=== PATIENT | male | born 1960 | race American Indian/Alaskan Native ===

== ENCOUNTER 2021-01-17 | Emergency (ER) | payer MEDICAID ==
[2021-01-17 03:27] LABS: Basophils # (Auto) 0.1 K/mm3 (0.0-0.1); Basophils % (Auto) 0.6 % (0.0-1.8); Eosinophils # (Auto) 0.1 K/mm3 (0.0-0.4); Eosinophils % (Auto) 0.8 % (0.0-4.3); Hematocrit 45.9 % (35.5-45.6); Hemoglobin 14.9 gm/dl (11.8-15.2); Lymphocytes # (Auto) 2.4 K/mm3 (1.2-5.4); Lymphocytes % (Auto) 20.8 % (13.4-35.0); Mean Corpuscular HGB Conc 33 % (32-34); Mean Corpuscular Volume 82 fl (84-94); Monocytes # (Auto) 0.9 K/mm3 (0.0-0.8); Monocytes % (Auto) 7.3 % (0.0-7.3); Platelet Count 175 K/mm3 (140-440); Red Cell Distribution Width 15.9 % (13.2-15.2)
--- NOTE | 2021-01-17 03:32 | Emergency Department Report ---
<YING MORINPHILLY Kirby - Last Filed: 01/17/21 05:17> ED Psych HPI - General Chief Complaint: Psych Stated Complaint: Hallucinations Time Seen by Provider: 01/17/21 03:09 Source: patient, family Mode of arrival: Ambulatory Limitations: No Limitations - History of Present Illness Initial Comments: Patient is a 60-year-old male presents emergency room for worsening hallucinations and homicidal ideations and agitation. Patient brought in by the patient's sister for an evaluation. Patient sister at bedside. Patient sister states that the patient is having worsening hallucinations and agitation and homicidal ideation. Patient sister states it started 3 days ago. Patient states his symptoms are worsening. Patient sister states that he is stating he wants to kill everybody. Patient has missed 2 shots of his Invega. Patient sister states that she cannot control the patient when he is off his meds. Patient denies suicidal ideations. Patient states that he cannot control his homicidal thoughts. Patient denies recent travel. Patient denies recent international travel. Patient denies exposure to the novel coronavirus. Patient denies sick contacts. Patient denies fever and chills. Patient denies cough. Patient denies diarrhea. Patient denies coming in contact with anybody with symptoms of the novel coronavirus. MD Complaint: other -: Sudden Associated Psychiatric Symptoms: homicidal ideation, auditory hallucinations, visual hallucinations History of same: Yes Quality: constant Improves With: none Worsens With: none Context: not taking psychiatric Associated Symptoms: denies: confusion, headache, shortness of breath, nausea, vomiting, syncope, insomnia - Related Data Allergies Allergy/AdvReac Type Severity Reaction Status Date / Time No Known Allergies Allergy Unverified 01/17/21 03:01 ED Review of Systems Constitutional: denies: chills, fever Eyes: denies: eye pain, eye discharge, vision change ENT: denies: ear pain, throat pain Respiratory: denies: cough, shortness of breath, wheezing Cardiovascular: denies: chest pain, palpitations Endocrine: no symptoms reported Gastrointestinal: denies: abdominal pain, nausea, diarrhea Genitourinary: denies: urgency, dysuria Musculoskeletal: denies: back pain, joint swelling, arthralgia Skin: denies: rash, lesions Neurological: denies: headache, weakness, paresthesias Psychiatric: as per HPI, auditory hallucinations, visual hallucinations, homicidal thoughts. denies: anxiety, depression, suicidal thoughts Hematological/Lymphatic: denies: easy bleeding, easy bruising ED Past Medical Hx - Past Medical History Previous Medical History?: Yes Hx Psychiatric Treatment: Yes - Surgical History Past Surgical History?: No - Family History Family history: no significant - Social History Smoking Status: Never Smoker Substance Use Type: None ED Physical Exam - General Limitations: No Limitations General appearance: alert, in no apparent distress - Head Head exam: Present: atraumatic, normocephalic - Eye Eye exam: Present: normal appearance - ENT ENT exam: Present: mucous membranes moist - Neck Neck exam: Present: normal inspection - Respiratory Respiratory exam: Present: normal lung sounds bilaterally. Absent: respiratory distress - Cardiovascular Cardiovascular Exam: Present: regular rate, normal rhythm. Absent: systolic murmur, diastolic murmur, rubs, gallop - GI/Abdominal GI/Abdominal exam: Present: soft, normal bowel sounds - Rectal Rectal exam: Present: deferred - Extremities Exam Extremities exam: Present: normal inspection - Back Exam Back exam: Present: normal inspection - Neurological Exam Neurological exam: Present: alert, oriented X3 - Psychiatric Psychiatric exam: Present: flat affect, homicidal ideation - Skin Skin exam: Present: warm, dry, intact, normal color. Absent: rash ED Course - Reevaluation(s) Reevaluation #1: Patient is medically cleared. Patient remained in the ER as an ER hold. Erickson jensen's final disposition will come from our mental health and psychiatry team. 01/17/21 05:17 ED Medical Decision Making - Lab Data Result diagrams: 01/17/21 01:35 01/17/21 01:35 - Medical Decision Making Patient is a 60-year-old male who presents emergency room for homicidal ideations and hallucinations. Patient is currently off his medications. Patient brought in by sister because she cannot handle his behavior and constant yelling out he wants to kill people. Patient has missed 2 doses of his injectable psychiatry medication. Patient had labs done which were essentially unremarkable. Patient is medically cleared. Patient will remain in the ER as an ER hold until the patient is cleared by the psychiatry mental health team. Patient's final disposition will come from our psychiatry mental health team. - Differential Diagnosis Hallucination, homicidal ideations, ED Disposition Clinical Impression: Homicidal ideations, Hallucinations, Acute psychosis Disposition: DC-01 TO HOME OR SELFCARE Is pt being admited?: No Does the pt Need Aspirin: No Condition: Stable Additional Instructions: OUTPATIENT MENTAL HEALTH RESOURCES [facility], [facility] Marquis James MD: [address] [place] [address] [place] [address] [facility] [place] [facility]: [facility] [address] [place] [address] [place] [address] [phone] [facility]: [facility]: [address] [facility] [address] [facility] [place] [address] [facility] [id number] [facility]: Karlo Pardo MD: [address] [facility] [address] [facility] [id number] [facility]: [address] [place] [address] [phone] [place] CRISIS AND ACCESS LINE: Referrals: PRIMARY CARE, [Primary Care Provider] - 3-5 Days Time of Disposition: 05:20 <ANGY LR - Last Filed: 01/17/21 11:54> ED Review of Systems ROS: Stated complaint: Hallucinations Other details as noted in HPI ED Course Vital Signs 01/17/21 01/17/21 01/17/21 02:47 04:24 09:16 Temperature 98.0 F 98.3 F Pulse Rate 88 90 Respiratory 18 20 20 Rate Blood Pressure 162/95 169/94 [Left] O2 Sat by Pulse 97 98 97 Oximetry ED Medical Decision Making - Lab Data Result diagrams: 01/17/21 01:35 01/17/21 01:35 - Medical Decision Making Patient has been cleared for discharge by psychiatric team. Patient will receive Invega injection. His family member will take him home. I have arranged discharge disposition. Critical care attestation.: If time is entered above; I have spent that time in minutes in the direct care of this critically ill patient, excluding procedure time. ED Disposition Is pt being admited?: No Does the pt Need Aspirin: No
[2021-01-17 03:45] LABS: BUN/Creatinine Ratio 13; Blood Urea Nitrogen 13 mg/dL (9-20); Calcium 9.6 mg/dL (8.4-10.2); Hemolysis Index 0
[2021-01-17 04:22] LABS: Bilirubin,Urine NEG (Negative); Blood,Urine NEG (Negative); Color,Urine Yellow (Yellow); Mucus,Urine FEW /HPF; Protein,Urine <15 mg/dL mg/dL (Negative); Urobilinogen,Urine < 2.0 mg/dL (<2.0)
[2021-01-17 04:49] LABS: Amphetamine Screen,Urine PRESUMPTIVE NEGATIVE; Benzodiazepines Screen,Urine PRESUMPTIVE NEGATIVE; Cannabinoid Screen,Urine PRESUMPTIVE NEGATIVE; Cocaine Screen,Urine PRESUMPTIVE NEGATIVE; Methadone Screen,Urine PRESUMPTIVE NEGATIVE; Opiate Screen,Urine PRESUMPTIVE NEGATIVE
--- NOTE | 2021-01-17 11:22 | Consultation ---
History of Present Illness - Reason for Consult Consult date: 01/17/21 Reason for consult: MHE - History of Present Psychiatric Illness Per ER Note: Patient is a 60-year-old male presents emergency room for worsening hallucinations and homicidal ideations and agitation. Patient brought in by the patient's sister for an evaluation. Patient sister at bedside. Patient sister states that the patient is having worsening hallucinations and agitation and courtney icidal ideation. Patient sister states it started 3 days ago. Patient states his symptoms are worsening. Patient sister states that he is stating he wants to kill everybody. Patient has missed 2 shots of his Invega. Patient sister states that she cannot control the patient when he is off his meds. Patient denies suicidal ideations. Patient states that he cannot control his homicidal thoughts. Salvador Cazares is a 60y/o male patient who was brought in by his daughter. During my evaluation of the patient he is confused, but calm and cooperative. The patient's speech is slurred and his left arm appears weak. The states "yes" when I asked if he had a stroke. The patient states "my sister brought me" when asked why did he come to the hospital. He denies SI/HI. But when asked if he had any hallucinations he replied "I don't know." I spoke with the sister and she states the patient hasn't had his Invega this month. She says he starts talking crazy and out of his head when he misses his injection. The sister says the patient goes to the [facility] and they didn't have it in and told them to bring him to the hospital. I discussed with the sister giving the patient his injection here and then sending him back home and following up with the [facility]. She verbalizes agreement and understanding. PAST PSYCHIATRIC HISTORY Diagnoses: bipolar Suicide attempts or Self-harm behavior: Denies Prior psychiatric hospitalizations: Denies Substance Abuse history: Denies Previous psychiatric medications tried: Invega Outpatient treatment: not in a long time PAST MEDICAL HISTORY: None reported Family Psychiatric History: None reported or documented SOCIAL HISTORY Marital Status: Single Living Arrangements: with family Employment Status: Disabled Access to guns/weapons: Denies Education: History of Abuse: Denies Legal History: none reported REVIEW OF SYSTEMS Constitutional: Negative for weight loss ENT: Negative for stridor Respiratory: Negative for cough or hemoptysis All other systems reviewed and are negative MENTAL STATUS EXAMINATION General Appearance and Behavior: Age appropriate, good hygiene, wearing appropriate clothes, good eye contact, pleasant Cooperation: Participating/engaged Psychomotor Behavior: Psychomotor normal Mood: alright Affect and affective range: congruent with stated mood Thought Process: confused Thought Content: None Speech: Normal rate, volume and rhythm Suicidal Ideation: Denies Homicidal Ideation: Denies Delusions: None elicited Impulse Control: Impaired Insight and Judgment: Limited insight and judgment Memory: Limited Attention: Limited Orientation: Alert, oriented Assessment and Plan (1) Bipolar Disosrder Current Visit: Yes Status: Acute Treatment Plan Invega Sustenna 156mg IM X 1. Please give this injection prior to the patient discharging. Call sister once given. Risks, benefits and alternatives of medications discussed with the patient, questions answered and consent obtained from patient. PSYCHOTHERAPY: Supportive psychotherapy provided MEDICAL: Per primary team DELIRIUM PRECAUTIONS: Please re-orient patient frequently, keep lights on during the day, and minimize benzodiazepines and opiates as these medications could worsen patient's confusion. PORCELAIN TECHNICIAN: DISPOSITION: Do not recommend acute inpatient psychiatric hospitalization at this time. Case discussed with Dr. Wang who agrees with current disposition The patient to follow up with the [facility] FOLLOW-UP: Will sign off Thank you for the consult. Please contact with any questions and/or concerns. Medications and Allergies Allergies Allergy/AdvReac Type Severity Reaction Status Date / Time No Known Allergies Allergy Unverified 01/17/21 03:01 Mental Status Exam - Vital signs Last Vital Signs Temp 98.3 F 01/17/21 09:16 Pulse 90 01/17/21 09:16 Resp 20 01/17/21 09:16 BP 169/94 01/17/21 09:16 Pulse Ox 97 01/17/21 09:16 Results Result Diagrams: 01/17/21 01:35 01/17/21 01:35 Abnormal lab results 01/17/21 01/17/21 01/17/21 Range/Units 01:35 01:35 01:35 WBC 11.6 H (4.5-11.0) K/mm3 RBC 5.60 H (3.65-5.03) M/mm3 Hct 45.9 H (35.5-45.6) % MCV 82 L (84-94) fl MCH 27 L (28-32) pg RDW 15.9 H (13.2-15.2) % [place] # (Auto) 0.9 H (0.0-0.8) K/mm3 Seg Neutrophils % 70.5 H (40.0-70.0) % Seg Neutrophils # 8.2 H (1.8-7.7) K/mm3 Salicylates < 0.3 L (2.8-20.0) mg/dL Acetaminophen 5.0 L (10.0-30.0) ug/mL All other labs normal.
[2021-01-17] MEDS ORDERED: LORazepam 1 MG TAB PO ONE (15:03)
[2021-01-18 08:19] VITALS: BP 123/70
--- NOTE | 2021-01-18 09:25 | Progress Note ---
Subjective - Reason for Consult Consult date: 01/18/21 Reason for consult: Mental Health Exam - Chief Complaint Chief complaint: The patient was sen resting quietly; patient is calm. He reports doing well. The patient reposrts sleep and appetite as good. He denies any current suicidal/homicidal ideation and denies hallucinations. REVIEW OF SYSTEMS Constitutional: Negative for weight loss ENT: Negative for stridor Respiratory: Negative for cough or hemoptysis All other systems reviewed and are negative MENTAL STATUS EXAMINATION General Appearance and Behavior: Age appropriate, good hygiene, wearing appropriate clothes, good eye contact, pleasant Cooperation: Participating/engaged Psychomotor Behavior: Psychomotor normal Mood: " okay' Affect and affective range: congruent with stated mood Thought Process: self directed Thought Content: None Speech: Normal rate, volume and rhythm Suicidal Ideation: Denies Homicidal Ideation: Denies Delusions: None elicited Impulse Control: Impaired Insight and Judgment: Limited insight and judgment Memory: Limited Attention: Limited Orientation: Alert, oriented Assessment and Plan (1) Bipolar Disosrder Current Visit: Yes Status: Acute Treatment Plan Invega Sustenna 156mg IM X 1. Please give this injection prior to the patient discharging. Call sister once given. Risks, benefits and alternatives of medications discussed with the patient, questions answered and consent obtained from patient. PSYCHOTHERAPY: Supportive psychotherapy provided MEDICAL: Per primary team DELIRIUM PRECAUTIONS: Please re-orient patient frequently, keep lights on during the day, and minimize benzodiazepines and opiates as these medications could worsen patient's confusion. STERILE INSTRUMENT TECHNICIAN: DISPOSITION: Do not recommend acute inpatient psychiatric hospitalization at this time. Case discussed with Dr. Wang who agrees with current disposition The patient to follow up with the [facility] FOLLOW-UP: Will sign off Thank you for the consult. Please contact with any questions and/or concerns. Mental Status Exam - Vital signs Last Vital Signs Temp 97.8 F 01/18/21 08:00 Pulse 70 01/18/21 08:00 Resp 18 01/18/21 08:00 BP 123/70 01/18/21 08:00 Pulse Ox 100 01/18/21 08:00
[2021-01-18] MEDS ORDERED: PALIPERIDONE PALMITATE 156 MG/ML INJ IM SCH (12:30)
== END 2021-01-18 20:45 | disposition home or self-care (01) ==
LOC: EEVIPCON → ED
DX: F23 Brief psychotic disorder (principal); Z20.822 Contact with and (suspected) exposure to COVID-19; R45.850 Homicidal ideations
CPT/HCPCS: 36415; 80048; 80307; 81001; 85025; 99284; J2426; U0003; 80320; G0480

== ENCOUNTER → 2022-03-27 | Emergency (ER) | payer MEDICAID ==
[~2022-03-27] MED LIST: LORazepam 2 MG/ML VIAL IM PRN; cephALEXin 500 MG CAP PO ONE; hydrOXYzine PAMOATE 25 MG CAP PO PRN; risperiDONE 1 MG TAB PO SCH; traZODone 50 MG TAB PO SCH
[2022-03-27 23:54] LABS: Bilirubin,Urine NEG (Negative); Blood,Urine NEG (Negative); Color,Urine Straw (Yellow); Protein,Urine <15 mg/dL mg/dL (Negative)
[2022-03-27 23:58] LABS: Urobilinogen,Urine < 2 mg/dL (<2.0)
[2022-03-28] LABS: Amphetamine Screen,Urine PRESUMPTIVE NEGATIVE; Benzodiazepines Screen,Urine PRESUMPTIVE NEGATIVE; Cannabinoid Screen,Urine PRESUMPTIVE NEGATIVE; Cocaine Screen,Urine PRESUMPTIVE NEGATIVE; Methadone Screen,Urine PRESUMPTIVE NEGATIVE; Opiate Screen,Urine PRESUMPTIVE NEGATIVE
[2022-03-28 00:08] LABS: Basophils # (Auto) 0.1 K/mm3 (0.0-0.1); Basophils % (Auto) 1.4 % (0.0-1.8); Eosinophils # (Auto) 0.1 K/mm3 (0.0-0.4); Eosinophils % (Auto) 1.2 % (0.0-4.3); Hematocrit 40.1 % (35.5-45.6); Hemoglobin 13.5 gm/dl (11.8-15.2); Lymphocytes # (Auto) 2.6 K/mm3 (1.2-5.4); Lymphocytes % (Auto) 28.5 % (13.4-35.0); Mean Corpuscular HGB Conc 34 % (32-34); Mean Corpuscular Volume 78 fl (84-94); Monocytes # (Auto) 0.6 K/mm3 (0.0-0.8); Platelet Count 173 K/mm3 (140-440); Red Blood Count 5.14 M/mm3 (3.65-5.03); Red Cell Distribution Width 14.8 % (13.2-15.2)
[2022-03-28 00:23] LABS: BUN/Creatinine Ratio 15; Blood Urea Nitrogen 17 mg/dL (9-20); Calcium 10.2 mg/dL (8.4-10.2); Hemolysis Index 12
[2022-03-28 00:56] LABS: Bacteria,Urine 1+ /HPF (Negative)
--- NOTE | 2022-03-28 09:43 | Emergency Department Report ---
ED General Adult HPI - General Chief complaint: Psych Stated complaint: MENTAL HEALTH Time Seen by Provider: 03/28/22 09:32 Source: patient, family, RN notes reviewed, old records reviewed Mode of arrival: Ambulatory Limitations: No Limitations - History of Present Illness Initial comments: This is a 61-year-old gentleman with a history of psychiatric disease. He is brought to the hospital by his sister for psychiatric evaluation. She reports that the patient is not sleeping. There is no physical pain. There is no concern for overdose homicidality, or suicidality. Sister is Marilyn; [phone] Current home medications include trazodone, 150 mg nightly, Atarax, 500 mg, every 6 hours as needed, and Risperdal, 1 mg nightly. Patient himself denies all complaints. As per family, no fever, nausea, vomiting, diarrhea, or COVID concerns or symptoms. Family does report that the patient is having hallucinations -: days(s) - Related Data Previous Rx's Medication Instructions Recorded Last Taken Type risperiDONE [Risperdal] 0 mg PO BID 30 Days #60 tablet 01/18/21 Unknown Rx Allergies Allergy/AdvReac Type Severity Reaction Status Date / Time No Known Allergies Allergy Unverified 01/17/21 03:01 ED Review of Systems ROS: Stated complaint: MENTAL HEALTH Other details as noted in HPI Constitutional: denies: fever Respiratory: denies: cough Cardiovascular: denies: chest pain Gastrointestinal: denies: abdominal pain Genitourinary: as per HPI Psychiatric: as per HPI. 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 Absent: nystagmus - ENT ENT exam: Present: normal exam, normal orophraynx, mucous membranes moist, normal external ear exam - Neck Neck exam: Present: normal inspection, full ROM. Absent: tenderness, meningismus - Respiratory Respiratory exam: Present: normal lung sounds bilaterally. Absent: respiratory distress, wheezes, rales, rhonchi, stridor, decreased breath sounds - Cardiovascular Cardiovascular Exam: Present: normal rhythm, tachycardia. Absent: bradycardia, irregular rhythm, systolic murmur, diastolic murmur, rubs, gallop - GI/Abdominal GI/Abdominal exam: Present: soft. Absent: distended, tenderness, guarding, rebound, rigid, pulsatile mass - Rectal Rectal exam: Present: deferred - Extremities Exam Extremities exam: Present: full ROM, other (2+ pulses noted in the bilateral upper and lower extremities. There is no palpable cord. negative Homans sign. Muscular compartments are soft. The pelvis is stable.). Absent: normal inspection (Chronic deformity noted to the left upper extremity. No acute infection noted.), calf tenderness - Back Exam Back exam: Present: normal inspection, full ROM. Absent: tenderness, CVA tenderness (R), CVA tenderness (L), paraspinal tenderness, vertebral tenderness - Neurological Exam Neurological exam: Present: alert, normal gait, other (There is no facial droop. The tongue is midline. EOMI. 5 out of 5 strength in 4 extremities) - Psychiatric Psychiatric exam: Absent: homicidal ideation, suicidal ideation - Skin Skin exam: Present: warm, dry, intact, normal color. Absent: rash ED Course Vital Signs 03/27/22 03/28/22 22:12 09:49 Temperature 98.3 F Pulse Rate 113 H 111 H Respiratory 20 18 Rate Blood Pressure 213/113 Blood Pressure 170/94 [Left] O2 Sat by Pulse 94 98 Oximetry - Reevaluation(s) Reevaluation #1: 03/28/22 11:23 Differential diagnosis, including not limited to: Psychosis, UTI, medical clearance for psychiatric placement Assessment and plan: 61-year-old gentleman with mild tachycardia, but otherwise, unremarkable vital signs, presenting today with sister with a sister articulated complaint of hallucinations, and not sleeping for 2 days. The patient is cooperative and not violent. Sister endorses that she is not worried about physical harm. Patient currently on a number of psychiatric medications. Urinalysis appreciated. Start Keflex. Mild elevated blood pressure reviewed and appreciated patient does not appear to have a documented history of hypertension. Elevated blood pressure may be secondary to underlying psychiatric issues. At this point in time, the patient does not appear to have an immediate medical contraindication to psychiatric admission, evaluation, consultation and placement. I am currently awaiting a psychiatric evaluation. 03/28 the patient may follow-up with an outpatient primary care doctor for his elevated blood pressure / 11:24 03/28/22 13:11 Psychiatric team have recommended a 1013. I have ordered, executed, and placed it on the chart. I discussed this with the patient's sister who articulated understanding. Extensive discussion had with the sister. Charge nurse, Fazal Cali, notified of change in status to 1013, and need to obtain COVID swab. Patient remains medically suitable for psychiatric placement and disposition at this time ED Medical Decision Making - Lab Data Result diagrams: 03/27/22 23:37 03/27/22 23:37 Vital Signs 03/27/22 03/28/22 22:12 09:49 Temperature 98.3 F Pulse Rate 113 H 111 H Respiratory 20 18 Rate Blood Pressure 213/113 Blood Pressure 170/94 [Left] O2 Sat by Pulse 94 98 Oximetry Lab Results 03/27/22 03/27/22 03/27/22 Range/Units 23:37 23:37 23:37 WBC (4.5-11.0) K/mm3 RBC (3.65-5.03) M/mm3 Hgb (11.8-15.2) gm/dl Hct (35.5-45.6) % MCV (84-94) fl MCH (28-32) pg MCHC (32-34) % RDW (13.2-15.2) % Plt Count (140-440) K/mm3 Lymph % (Auto) (13.4-35.0) % Cooper % (Auto) (0.0-7.3) % Eos % (Auto) (0.0-4.3) % Baso % (Auto) (0.0-1.8) % Lymph # (Auto) (1.2-5.4) K/mm3 Cooper # (Auto) (0.0-0.8) K/mm3 Eos # (Auto) (0.0-0.4) K/mm3 Baso # (Auto) (0.0-0.1) K/mm3 Seg Neutrophils % (40.0-70.0) % Seg Neutrophils # (1.8-7.7) K/mm3 Sodium 146 H (137-145) mmol/L Potassium 4.3 (3.6-5.0) mmol/L Chloride 109.2 H (98-107) mmol/L Carbon Dioxide 25 (22-30) mmol/L Anion Gap 16 mmol/L BUN 17 (9-20) mg/dL Creatinine 1.1 (0.8-1.3) mg/dL Estimated GFR > 60 ml/min BUN/Creatinine Ratio 15 % Glucose 108 H (75-100) mg/dL Calcium 10.2 (8.4-10.2) mg/dL Urine Color (Yellow) Urine Turbidity (Clear) Urine pH (5.0-7.0) Ur Specific [place] (1.003-1.030) Urine Protein (Negative) mg/dL Urine Glucose (UA) (Negative) mg/dL Urine Ketones (Negative) mg/dL Urine Blood (Negative) Urine Nitrite (Negative) Urine Bilirubin (Negative) Urine Urobilinogen (<2.0) mg/dL Ur Leukocyte Esterase (Negative) Urine WBC (Auto) (0.0-6.0) /HPF Urine RBC (Auto) (0.0-6.0) /HPF Urine Bacteria (Auto) (Negative) /HPF Urine WBC Clumps /HPF Urine Yeast (Budding) /HPF Salicylates < 0.3 L (2.8-20.0) mg/dL Urine Opiates Screen Urine Methadone Screen Acetaminophen 5.0 L (10.0-30.0) ug/mL Ur Barbiturates Screen Ur Phencyclidine Scrn Ur Amphetamines Screen U Benzodiazepines Scrn Urine Cocaine Screen U Marijuana (THC) Screen Drugs of Abuse Note Plasma/Serum Alcohol (0-0.07) % 03/27/22 03/27/22 03/27/22 Range/Units 23:37 23:37 Unknown WBC 9.2 (4.5-11.0) K/mm3 RBC 5.14 H (3.65-5.03) M/mm3 Hgb 13.5 (11.8-15.2) gm/dl Hct 40.1 (35.5-45.6) % MCV 78 L (84-94) fl MCH 26 L (28-32) pg MCHC 34 (32-34) % RDW 14.8 (13.2-15.2) % Plt Count 173 (140-440) K/mm3 Lymph % (Auto) 28.5 (13.4-35.0) % Cooper % (Auto) 7.0 (0.0-7.3) % Eos % (Auto) 1.2 (0.0-4.3) % Baso % (Auto) 1.4 (0.0-1.8) % Lymph # (Auto) 2.6 (1.2-5.4) K/mm3 Cooper # (Auto) 0.6 (0.0-0.8) K/mm3 Eos # (Auto) 0.1 (0.0-0.4) K/mm3 Baso # (Auto) 0.1 (0.0-0.1) K/mm3 Seg Neutrophils % 61.9 (40.0-70.0) % Seg Neutrophils # 5.7 (1.8-7.7) K/mm3 Sodium (137-145) mmol/L Potassium (3.6-5.0) mmol/L Chloride (98-107) mmol/L Carbon Dioxide (22-30) mmol/L Anion Gap mmol/L BUN (9-20) mg/dL Creatinine (0.8-1.3) mg/dL Estimated GFR ml/min BUN/Creatinine Ratio % Glucose (75-100) mg/dL Calcium (8.4-10.2) mg/dL Urine Color Straw (Yellow) Urine Turbidity Clear (Clear) Urine pH 6.0 (5.0-7.0) Ur Specific [place] 1.008 (1.003-1.030) Urine Protein <15 mg/dl (Negative) mg/dL Urine Glucose (UA) Neg (Negative) mg/dL Urine Ketones Neg (Negative) mg/dL Urine Blood Neg (Negative) Urine Nitrite Neg (Negative) Urine Bilirubin Neg (Negative) Urine Urobilinogen < 2 (<2.0) mg/dL Ur Leukocyte Esterase Neg (Negative) Urine WBC (Auto) 97.0 H (0.0-6.0) /HPF Urine RBC (Auto) 12.0 (0.0-6.0) /HPF Urine Bacteria (Auto) 1+ (Negative) /HPF Urine WBC Clumps 3+ /HPF Urine Yeast (Budding) 1+ /HPF Salicylates (2.8-20.0) mg/dL Urine Opiates Screen Urine Methadone Screen Acetaminophen (10.0-30.0) ug/mL Ur Barbiturates Screen Ur Phencyclidine Scrn Ur Amphetamines Screen U Benzodiazepines Scrn Urine Cocaine Screen U Marijuana (THC) Screen Drugs of Abuse Note Plasma/Serum Alcohol < 0.01 (0-0.07) % 03/27/22 Range/Units Unknown WBC (4.5-11.0) K/mm3 RBC (3.65-5.03) M/mm3 Hgb (11.8-15.2) gm/dl Hct (35.5-45.6) % MCV (84-94) fl MCH (28-32) pg MCHC (32-34) % RDW (13.2-15.2) % Plt Count (140-440) K/mm3 Lymph % (Auto) (13.4-35.0) % Cooper % (Auto) (0.0-7.3) % Eos % (Auto) (0.0-4.3) % Baso % (Auto) (0.0-1.8) % Lymph # (Auto) (1.2-5.4) K/mm3 Cooper # (Auto) (0.0-0.8) K/mm3 Eos # (Auto) (0.0-0.4) K/mm3 Baso # (Auto) (0.0-0.1) K/mm3 Seg Neutrophils % (40.0-70.0) % Seg Neutrophils # (1.8-7.7) K/mm3 Sodium (137-145) mmol/L Potassium (3.6-5.0) mmol/L Chloride (98-107) mmol/L Carbon Dioxide (22-30) mmol/L Anion Gap mmol/L BUN (9-20) mg/dL Creatinine (0.8-1.3) mg/dL Estimated GFR ml/min BUN/Creatinine Ratio % Glucose (75-100) mg/dL Calcium (8.4-10.2) mg/dL Urine Color (Yellow) Urine Turbidity (Clear) Urine pH (5.0-7.0) Ur Specific [place] (1.003-1.030) Urine Protein (Negative) mg/dL Urine Glucose (UA) (Negative) mg/dL Urine Ketones (Negative) mg/dL Urine Blood (Negative) Urine Nitrite (Negative) Urine Bilirubin (Negative) Urine Urobilinogen (<2.0) mg/dL Ur Leukocyte Esterase (Negative) Urine WBC (Auto) (0.0-6.0) /HPF Urine RBC (Auto) (0.0-6.0) /HPF Urine Bacteria (Auto) (Negative) /HPF Urine WBC Clumps /HPF Urine Yeast (Budding) /HPF Salicylates (2.8-20.0) mg/dL Urine Opiates Screen Presumptive negative Urine Methadone Screen Presumptive negative Acetaminophen (10.0-30.0) ug/mL Ur Barbiturates Screen Presumptive negative Ur Phencyclidine Scrn Presumptive negative Ur Amphetamines Screen Presumptive negative U Benzodiazepines Scrn Presumptive negative Urine Cocaine Screen Presumptive negative U Marijuana (THC) Screen Presumptive negative Drugs of Abuse Note Disclamer Plasma/Serum Alcohol (0-0.07) % Critical care attestation.: If time is entered above; I have spent that time in minutes in the direct care of this critically ill patient, excluding procedure time. ED Disposition Clinical Impression: Hallucination, Pyuria, Encounter for behavioral health screening, Elevated blood pressure reading Disposition: [address] [place] [address] Is pt being admited?: No Does the pt Need Aspirin: No Condition: Good Additional Instructions: OUTPATIENT MENTAL HEALTH RESOURCES [facility], [facility] Marquis James MD: [address] [place] [address] [place], [place] [id number] [place] [facility]: [facility] [address] [place] [address] [place] [address] [phone] [facility]: [facility]: [address] [facility] [place] [address] [facility] [id number] [facility]: Karlo Pardo MD: [id number] [facility] [id number] [facility]: [address] [place] [address] [phone] [place] CRISIS AND ACCESS LINE:
--- NOTE | 2022-03-28 12:50 | Consultation ---
History of Present Illness - Reason for Consult Consult date: 03/28/22 Reason for consult: mental health evaluation - History of Present Psychiatric Illness Patient is a 61 year-old male with intellectual disability and psychiatric history of schizophrenia. Patient was alert, disoriented x3, but cooperative throughout the interview. Patient was accompanied by his sister and detective supervisor Marilyn who reports patient is at his baseline level of cognitive functioning. Patient's detective supervisor was the primary historian with collateral information from [facility] (phone: [phone]). Patient detective supervisor reports patient had his last shot of invega Thursday (2 days ago) and patient has been pacing, has not slept, has been talking to his sister and talking to himself and saying he's going "to kill him," since then. Patient's detective supervisor believes patient is referring to the late sister's who was convicted of murder. Patient's detective supervisor reports patient's behavior including insomnia, pacing, irritability, and responding to internal stimuli occurs when he's late for his invega dosing. Patient's detective supervisor was advised to increase risperidone to 1 mg BID for a day without improvement in his behavior, and then was advised to bring pt to be evaluated at ER. Patient and patient's detective supervisor denies drug use. Patient denies SI HI at this time. [facility] confirmed patient has been taking invega sustenna for years, has been taking invega sustenna q3w the last two months, and last received invega sustenna 234 mg IM on 03/26 without issue, with previous injections 12/10, 01/22, 02/02, and 03/05. Patient's sister Marilyn reports symptoms were previously well controlled the last 2 months prior to Thursday with invega sustenna 234 mg IM q3w, risperidone 1 mg qhs, trazodone 150 mg qhs, and hydroxyzine pamoate 50 mg PRN for anxiety. PAST PSYCHIATRIC HISTORY Diagnoses: Schizophrenia Suicide attempts or Self-harm behavior: Denies Prior psychiatric hospitalizations: Denies Substance Abuse history: Denies Previous psychiatric medications tried: Invega Outpatient treatment: not in a long time Family Psychiatric History: None reported or documented SOCIAL HISTORY Marital Status: Single Living Arrangements: With sister Marilyn Employment Status: Disabled Access to guns/weapons: Denies History of Abuse: Denies Legal History: Denies MENTAL STATUS EXAMINATION General Appearance and Behavior: Age appropriate, good hygiene, wearing appropriate clothes, poor eye contact Cooperation: Participating/engaged Psychomotor Behavior: Psychomotor normal Mood: "good," Affect and affective range: calm, flat affect Thought Process: goal-oriented Thought Content: reality-based Speech: Normal rate, volume and rhythm; paucity of speech Suicidal Ideation: Denies Homicidal Ideation: threatening to kill late sister's Delusions: None elicited Impulse Control: Impaired Insight and Judgment: Poor insight and judgment Memory: Poor Attention: Limited responding to internal stimuli Orientation: Alert, disoriented x3 ASSESSMENT Schizophrenia Treatment Plan 1013 - Restart medications: - Maintain Risperidone 1 mg BID - Trazodone 150 mg qhs - Hydroxyzine 50 mg q6h PRN Risks, benefits and alternatives of medications discussed with the patient, questions answered and consent obtained from patient. PSYCHOTHERAPY: Supportive psychotherapy provided MEDICAL: Per primary team DELIRIUM PRECAUTIONS: Please re-orient patient frequently, keep lights on during the day, and minimize benzodiazepines and opiates as these medications could worsen patient's confusion. CHEMICAL MANAGER: DISPOSITION: Recommend acute inpatient psychiatric hospitalization at this time. FOLLOW-UP: Will follow. Thank you for the consult. Please contact with any questions and/or concerns. Medications and Allergies Allergies Allergy/AdvReac Type Severity Reaction Status Date / Time No Known Allergies Allergy Unverified 01/17/21 03:01 Home Medications Medication Instructions Recorded Confirmed Last Taken Type risperiDONE [Risperdal] 0 mg PO BID 30 Days #60 tablet 01/18/21 Unknown Rx Active Meds: Active Medications Cephalexin (Cephalexin 500 Mg Cap) 500 mg PO Q6HR [facility]; Protocol Stop: 04/02/22 06:01 Lorazepam (Lorazepam 2 Mg/Ml Vial) 2 mg IM Q4HR PRN PRN Reason: Agitation Mental Status Exam - Vital signs Last Vital Signs Temp 98.3 F 03/27/22 22:12 Pulse 111 H 03/28/22 09:49 Resp 18 03/28/22 09:49 BP 170/94 03/28/22 09:49 Pulse Ox 98 03/28/22 09:49 Results Result Diagrams: 03/27/22 23:37 03/27/22 23:37 Abnormal lab results 03/27/22 03/27/22 03/27/22 Range/Units 23:37 23:37 23:37 RBC (3.65-5.03) M/mm3 MCV (84-94) fl MCH (28-32) pg Sodium 146 H (137-145) mmol/L Chloride 109.2 H (98-107) mmol/L Glucose 108 H (75-100) mg/dL Urine WBC (Auto) (0.0-6.0) /HPF Salicylates < 0.3 L (2.8-20.0) mg/dL Acetaminophen 5.0 L (10.0-30.0) ug/mL 03/27/22 03/27/22 Range/Units 23:37 Unknown RBC 5.14 H (3.65-5.03) M/mm3 MCV 78 L (84-94) fl MCH 26 L (28-32) pg Sodium (137-145) mmol/L Chloride (98-107) mmol/L Glucose (75-100) mg/dL Urine WBC (Auto) 97.0 H (0.0-6.0) /HPF Salicylates (2.8-20.0) mg/dL Acetaminophen (10.0-30.0) ug/mL All other labs normal.
[2022-03-28] MEDS: cephALEXin 500 MG CAP PO SCH ×2 (13:33→19:54)
[2022-03-28 21:05] VITALS: BP 181/77
== END ==
LOC: ED 22:05
DX: R44.3 Hallucinations, unspecified (principal); R82.81 Pyuria; Z13.30 Encounter for screening examination for mental health and behavioral disorders, unspecified; I10 Essential (primary) hypertension; F17.200 Nicotine dependence, unspecified, uncomplicated
CPT/HCPCS: 36415; 80048; 80307; 80320; 81001; 85025; 87086; 96372; 99285; G0480; J2060